=== PATIENT | female | born 1970 | race Caucasian/White ===

== ENCOUNTER → 2016-12-02 | Outpatient (CLI) | payer BC | END | disposition home or self-care (01) | LOC: C.PAPS 16:59 | PROVIDERS: ATTEND Obstetrics & Gynecology | DX: Z01.419 Encounter for gynecological examination (general) (routine) without abnormal findings (principal) ==

== ENCOUNTER → 2017-02-26 | Outpatient (CLI) | payer BC ==
--- NOTE | 2017-02-26 15:26 | DIAGNOSTIC IMAGING REPORT ---
ABDOMEN AND PELVIS CT WITHOUT CONTRAST CT DOSE: 1056.70 mGycm HISTORY: R10.824 Left lower quadrant rebound abdominal tenderness [id number] TECHNIQUE: Multiaxial CT images of the abdomen and pelvis were performed without contrast. A dose lowering technique was utilized adhering to the principles of ALARA. COMPARISON STUDY: None. FINDINGS: The lung bases are clear. No pneumoperitoneum. No pneumatosis. Focal sclerotic focus within the left sacral wing favors a bone island. No suspicious lytic or blastic osseous lesions. The unenhanced liver, spleen, adrenal glands, pancreas, and kidneys are unremarkable. No renal stones or hydronephrosis. A few small gas containing gallstones are identified. No retroperitoneal lymphadenopathy. The bladder, uterus, bilateral adnexa are unremarkable. No pelvic free fluid. Suboptimal evaluation for bowel pathology due to the lack of intravenous and oral contrast. However, there is no definite bowel wall thickening or obstruction. Normal appendix. IMPRESSION: 1. No definite bowel wall thickening or obstruction. 2. Normal appendix. 3. No renal stones or hydronephrosis. 4. Cholelithiasis. Electronically signed by: Freddie Thakur M.D. 02/26/2017 3:25 PM Dictated Date/Time: 02/26/2017 3:19 PM
== END | disposition home or self-care (01) ==
LOC: C.CTS 14:36
PROVIDERS: ATTEND Nurse Practitioner Adult Health
DX: R10.824 Left lower quadrant rebound abdominal tenderness (principal)

== ENCOUNTER → 2017-04-07 | Outpatient (CLI) | payer BC ==
[~2017-04-07] MED LIST: LEVO150T9 PO; OXYC-57 PO; PRLSR20 PO; RANI150T3 PO; TRMO2580 TOP
--- NOTE | 2017-04-08 14:27 | MAMMOGRAPHY REPORT ---
BILATERAL DIGITAL SCREENING MAMMOGRAM TOMOSYNTHESIS WITH CAD: 04/07/2017 CLINICAL HISTORY: Routine screening. Patient has no complaints. TECHNIQUE: Breast tomosynthesis in addition to standard 2D mammography was performed. Current study was also evaluated with a Computer Aided Detection (CAD) system. COMPARISON: Comparison is made to exams dated: 04/03/2016 mammogram, 03/24/2015 mammogram, 4 mammogram, 03/22/2013 mammogram, 03/18/2012 mammogram, and 03/13/2011 mammogram - [facility]. BREAST COMPOSITION: There are scattered areas of fibroglandular density in both breasts. FINDINGS: There are stable intramammary lymph nodes in each upper outer quadrant. No suspicious mass , architectural distortion or cluster of microcalcifications is seen. IMPRESSION: ACR BI-RADS CATEGORY 1: NEGATIVE There is no mammographic evidence of malignancy. A 1 year screening mammogram is recommended. The pa tient will receive written notification of the results. Approximately 10% of breast cancers are not detected with mammography. A negative mammographic report should not delay biopsy if a clinically suggestive mass is present. Carolyn Kennedy M.D. ay/:04/07/2017 16:06:43 Certification And Selection Specialist: Annita KOROMA(Rey)(Nguyễn), [facility] letter sent: Normal 1/2 BI-RADS Code: ACR BI-RADS Category 1: Negative
== END | disposition home or self-care (01) ==
LOC: C.MAMM 08:32
PROVIDERS: ATTEND Obstetrics & Gynecology
DX: Z12.31 Encounter for screening mammogram for malignant neoplasm of breast (principal)

== ENCOUNTER → 2017-04-09 | Day surgery (SDC) | payer BC ==
[2017-03-20 08:17] VITALS: BMI 37.0
[~2017-04-09] VITALS: Ht 157.5 cm; Wt 92.7 kg
[~2017-04-09] MED LIST changes: +ATROPINE SULFATE 0.1 MG/ML 5ML SYR IV PRN; +BUPIVACAINE 0.5 % 5 MG/1 ML MPF 30ML VIAL ONE; +CEFOXITIN IV 2,000 MG in DEXTROSE 5% 50ML 50 ML IV SCH; +CEFOXITIN IV 2,000 MG in SYRINGE 11 ML IV SCH; +CHECK SCOPOLAMINE PATCH PLACEMENT SCH; +DEXAMETHASONE SOD INJ 4 MG/ML VIAL ONE; +EpHEDrine SULFATE INJ 50 MG/ML AMP IV PRN; +EpHEDrine SULFATE INJ 50 MG/ML AMP ONE; +FENTANYL CITRATE INJ 50 MCG/1 ML 2 ML VIAL ONE; +GLYCOPYRROLATE INJ 0.2 MG/ML VIAL ONE; +LACTATED RINGER'S 1000ML 1,000 ML IV SCH; +LIDOCAINE HCL 2% 2 ML VIAL (20MG/ML) ONE; +MIDAZOLAM HCL 1 MG/ML 2ML VIAL ONE; +MoRPHine SULFATE 4 MG/ML 1 ML CARP\\VIAL IV PRN; +NEOSTIGMINE METHYLSULFATE 5 MG/5 ML SYR ONE; +ONDANSETRON INJ 2 MG/ML 2 ML VIAL IV PRN; +ONDANSETRON INJ 2 MG/ML 2 ML VIAL ONE; +OXYCODONE/ACETAMINOPHEN 5-325 TAB PO PRN; +PHENYLEPHRINE HCL INJ 10 MG/ML VIAL ONE; +PROMETHAZINE HCL INJ 12.5 MG in SODIUM CHLORIDE 0.9% 50ML 50 ML IV PRN; +PROPOFOL IV EMULSION 10 MG/ML 20 ML VIAL IV ONE; +SCOPOLAMINE 1.5 MG TDSY TD SCH; +SUCCINYLCHOLINE CHLORIDE 20 MG/ML 10 ML VIAL IV ONE
[2017-04-09 09:40] VITALS: BP 128/86; PULSE 80; TEMP 36.9; O2SAT 97; BMI 37.0
[2017-04-09 09:45] VITALS: BP 128/86; TEMP 36.9; O2SAT 97; Ht 157.5 cm; Wt 92.7 kg
--- NOTE | 2017-04-09 10:19 | History & Physical Bridge Note ---
H&P Re-Evaluation Bridge Note: I have examined the patient, reviewed the History & Physical and in the interval since the performance of the History & Physical I have noted the following changes of clinical significance: No changes noted
--- NOTE | 2017-04-09 10:24 | Discharge Instructions ---
Discharge Instructions Date of Service Apr 09, 2017. Visit Reason for Visit: Cholelithiasis Discharge Discharge Diagnosis / Problem: laparoscopic cholecystectomy Discharge Goals Goal(s): Decrease discomfort Activity Recommendations Activity Limitations: as noted below Lifting Limitations: no more than 10 pounds Shower/Bathe: no limitations (ok to shower) Driving or Machine Use: resume 3 days after discharge Anesthesia . Post Anesthesia Instructions: If you have had General Anesthesia or IV Sedation: * Do not drive today. * Resume driving when surgeon permits. * Do not make important decisions or sign legal documents today. * Call surgeon for: 1. Temperature elevations greater than 101 degrees F. 2. Uncontrollable pain. 3. Excessive bleeding. 4. Persistent nausea and vomiting. 5. Medication intolerance (nausea, vomiting or rash). * For nausea and vomiting use only clear liquids such as: tea, soda, bouillon until nausea subsides, then gradually increase diet as tolerated. * If you have any concerns or questions, call your surgeon's office. If physician is unavailable and it is an emergency, call 911 or go to the nearest emergency room. . Instructions / Follow-Up Instructions / Follow-Up Dr. Marquez in 2 weeks as planned, call [phone] for any questions Diet Recommendations Recommended Home Diet: no limitations Pending Studies Studies pending at discharge: yes List of pending studies: pathology Medical Emergencies . Who to Call and When: Medical Emergencies: If at any time you feel your situation is an emergency, please call 911 immediately. . Non-Emergent Contact Non-Emergency issues call your: Surgeon Call Non-Emergent contact if: you have a fever, temperature is above 101.5, your pain is not controlled, you have any medication questions . . "Provider Documentation" section prepared by Ciaran Clinton. .
--- NOTE | 2017-04-09 11:57 | [facility] Operative Report ---
Operative Report Operative Date Apr 09, 2017. Pre-Operative Diagnosis Cholelithiasis Post-Operative Diagnosis cholelithiasis Procedure(s) Performed Laparoscopic cholecystectomy Surgeon Chambers Temporary Office Assistant Surgeon(s) Alejo Clinton PA-C Estimated Blood Loss 4CC Findings Window of safety obtained, cystic duct and artery doubly clipped and divided. Specimens A: Gallbladder and Contents Drains none Anesthesia GETA Complication(s) None Disposition Recovery Room / PACU Indications 47-year-old female with symptomatic cholelithiasis, plan for laparoscopic cholecystectomy with possible intraoperative cholangiogram. The risks of the procedure were discussed, all questions were answered, and the patient agreed to proceed with surgery as planned. Description of Procedure The patient was properly identified, consented, and taken to the operating room where she was placed in the supine position. General endotracheal anesthesia was induced. SCDs and a safety belt were placed. Preoperative antibiotics were administered. The patient's abdomen was prepped and draped in the standard sterile fashion. A surgical timeout was performed and all parties were in agreement that this was the correct patient and procedure to be performed and we continued as planned. A stab incision was made in the left upper quadrant and the Veress needle was inserted. Saline drop test confirmed entry into the peritoneum. The abdomen was insufflated with carbon dioxide which the patient tolerated without incident. An incision was made superior and to the left of the umbilicus overlying the rectus muscle. The abdomen was then entered using the Optiview technique and a 5 mm trocar. The laparoscope was inserted and no damage from initial trocar or Veress needle placement was noted, no gross abnormalities were noted within the 4 quadrants of the abdomen. An 11 mm port was placed in the subxiphoid position and two 5 mm ports were then placed in the right subcostal position. The patient was placed in reverse Trendelenburg position and rotated towards the left. The dome of the gallbladder was retracted towards the left upper quadrant and the infundibulum was retracted toward the right lower quadrant revealing Calot' s triangle. Peritoneal attachments were taken down with electrocautery and blunt dissection. The cystic duct and artery were circumferentially dissected. A window of safety was obtained showing the cystic duct entering the gallbladder with no aberrant structures noted. The cystic duct and artery were doubly clipped and divided. The gallbladder was then lifted off the gallbladder fossa with electrocautery. The gallbladder was placed in an Endo Catch bag and removed through the umbilical port site. The right upper quadrant was irrigated and hemostasis was found to be good. 5 mm trochars were removed under direct visualization and the abdomen was allowed to collapse. The subxiphoid port site fascia was closed with 0 Vicryl suture using the suture passer. The wound was irrigated, and the skin of all ports was closed with 4-0 Monocryl subcuticular sutures. Dermabond was placed over the wounds. The patient was extubated in the operating room and taken to the PACU where she recovered without apparent incident. All sponge, instrument and needle counts were correct at the conclusion of the procedure. The patient tolerated the procedure well. I attest to the content of the Intraoperative Record and any orders documented therein. Any exceptions are noted below.
[2017-04-09] MEDS: FENTANYL CITRATE INJ 50 MCG/1 ML 2 ML VIAL IV PRN ×4 (12:16→12:32)
[2017-04-09] MEDS: HYDROmorphone INJ 1 MG/ML SYR IV PRN ×2 (12:36→12:41)
--- NOTE | 2017-04-09 12:50 | Anesthesiology Progress Note ---
Anesthesia Post Op Note Date & Time Apr 09, 2017 at 12:49 Vital Signs Pain Intensity: 4 Vital Signs Past 12 Hours Date Time Temp Pulse Resp B/P (MAP) Pulse Ox O2 Delivery O2 Flow Rate FiO2 04/09/17 12:45 36.4 56 16 119/74 96 Room Air 04/09/17 12:35 70 16 123/79 96 Room Air 04/09/17 12:25 58 16 128/79 100 Room Air 04/09/17 12:15 61 16 134/81 100 Oxymask 5 04/09/17 12:05 59 16 123/69 100 Oxymask 10 04/09/17 11:57 36.3 71 16 134/83 100 Oxymask 10 04/09/17 09:45 36.9 18 128/86 (100) 97 Room Air 04/09/17 09:40 36.9 80 18 128/86 (100) 97 Room Air Notes Mental Status: alert / awake / arousable, participated in evaluation Pt Amnestic to Procedure: Yes Nausea / Vomiting: adequately controlled Pain: improving with treatment Airway Patency, RR, SpO2: stable & adequate BP & HR: stable & adequate Hydration State: stable & adequate Anesthetic Complications: no major complications apparent to get percocet in stage II recovery
[2017-04-09 13:00] VITALS: BP 152/73; PULSE 61; TEMP 36.8; O2SAT 99
[2017-04-09 13:30] VITALS: BP 138/76; PULSE 61; O2SAT 99
[2017-04-09 14:00] VITALS: BP 122/72; PULSE 62; O2SAT 97
[2017-04-09 14:52] VITALS: BP 124/72; PULSE 62; TEMP 36.7; O2SAT 98
== END | disposition home or self-care (01) ==
LOC: C.ACU 08:53
PROVIDERS: ATTEND Surgery
DX: K80.10 Calculus of gallbladder with chronic cholecystitis without obstruction (principal); K21.9 Gastro-esophageal reflux disease without esophagitis; E66.9 Obesity, unspecified; E03.9 Hypothyroidism, unspecified; E04.2 Nontoxic multinodular goiter; R73.03 Prediabetes; Z68.37 Body mass index [BMI] 37.0-37.9, adult; Z83.3 Family history of diabetes mellitus; Z80.42 Family history of malignant neoplasm of prostate